=== PATIENT | female | born 1980 | race Caucasian/White ===

== ENCOUNTER 2018-03-05 20:52 | Emergency (ER) | payer OTHER ==
[2018-03-05 20:59] VITALS: BP 148/78; PULSE 120; TEMP 100.2; BMI 21.9
--- NOTE | 2018-03-05 21:01 | PDOC ---
Rapid Medical Evaluation Chief Complaint: Urinary Problem Time Seen by Provider: 03/05/18 20:55 Medical Evaluation: Allergies Allergy/AdvReac Type Severity Reaction Status Date / Time No Known Allergies Allergy Verified 09/25/15 23:32 03/05/18 20:57 I have performed a brief in-person evaluation of this patient. The patient presents with a chief complaint of: urinary frequency, back pain , Pertinent physical exam findings: pale, no CVAT, + suprapubic pain , soft I have ordered the following: ua, ucg, ucx The patient will proceed to the ED for further evaluation 03/05/18 20:59 Discharge Disposition - Diagnosis Dysuria - Referrals Referrals: Lucille Magallon [Primary Care Provider] - - Patient Instructions - Post Discharge Activity
[2018-03-05 22:16] LABS: URINE APPEARANCE CLEAR; URINE BILIRUBIN NEGATIVE (<2.0 mg/dL); URINE COLOR LTYELLOW; URINE GLUCOSE (UA) NEGATIVE (NEGATIVE); URINE KETONE NEGATIVE (NEGATIVE); URINE LEUK ESTERASE 1+ (NEGATIVE); URINE NITRITE NEGATIVE (NEGATIVE); URINE PROTEIN NEGATIVE (NEGATIVE); URINE UROBILINOGEN NEGATIVE mg/dL (0.2-1.0)
[2018-03-05 22:17] LABS: HCG,QUALITATIVE URINE Negative
[2018-03-05 22:27] LABS: EPI CELLS RARE /HPF (FEW); URINE BACTERIA RARE /hpf (NONE SEEN); URINE HYALINE CAST 1 /lpf; URINE MUCUS RARE
[2018-03-05] MEDS ORDERED: ACETAMINOPHEN 500 MG TABLET (FP) PO ONE (22:38)
[2018-03-05] MEDS ORDERED: ACETAMINOPHEN 500 MG TABLET (FP) ONE (22:39)
--- NOTE | 2018-03-05 22:39 | PDOC ---
History of Present Illness - General Chief Complaint: Cold Symptoms Stated Complaint: COLD SYMPTOMS Time Seen by Provider: 03/05/18 20:55 - History of Present Illness Initial Comments: 03/05/18 22:38 37-year-old female with urinary frequency and pressure times one day subjective fever at home. No comorbidities. Past History - Past Medical History Allergies/Adverse Reactions: Allergies Allergy/AdvReac Type Severity Reaction Status Date / Time No Known Allergies Allergy Verified 03/05/18 20:59 Home Medications: Ambulatory Orders Nitrofurantoin Monohyd/M-Cryst [Macrobid -] 100 mg PO BID #14 capsule 03/05/18 COPD: No - Surgical History Abdominal Surgery: Yes (LIPOSUCTION) - Suicide/Smoking/Psychosocial Hx Smoking History: Never smoked Have you smoked in the past 12 months: No Hx Alcohol Use: No Drug/Substance Use Hx: No Substance Use Type: None Review of Systems - Review of Systems Constitutional: Yes: Fever : Yes: Frequency *Physical Exam - Vital Signs Last Vital Signs Temp Pulse Resp BP Pulse Ox 100.2 F H 120 H 18 148/78 98 03/05/18 20:54 03/05/18 20:54 03/05/18 20:54 03/05/18 20:54 03/05/18 20:54 - Physical Exam Comments: 03/05/18 22:38 HEAD: NC/AT EYES: Conjuntiva clear NEUROLOGIC: No gross sensory or motor deficits SKIN: Normal color and temperature no lesions or rashes ED Treatment Course - ADDITIONAL ORDERS Additional order review: Laboratory Results 03/05/18 22:00 Urine Color Ltyellow Urine Appearance Clear Urine pH 6.0 Ur Specific [place] 1.012 Urine Protein Negative Urine Glucose (UA) Negative Urine Ketones Negative Urine Blood 3+ H Urine Nitrite Negative Urine Bilirubin Negative Urine Urobilinogen Negative Ur Leukocyte Esterase 1+ H Urine WBC (Auto) 45 Urine RBC (Auto) 4 Ur Epithelial Cells Rare Urine Bacteria Rare Hyaline Casts 1 Urine Mucus Rare Urine HCG, Qual Negative *DC/Admit/Observation/Transfer Diagnosis at time of Disposition: Dysuria, UTI (urinary tract infection) - Discharge Dispostion Disposition: HOME Condition at time of disposition: Stable Decision to Admit order: No - Prescriptions Prescriptions: Nitrofurantoin Monohyd/M-Cryst [Macrobid -] 100 mg PO BID #14 capsule - Referrals Referrals: Lucille Magallon [Primary Care Provider] - - Patient Instructions Printed Discharge Instructions: Urinary Tract Infection, DI for Urinary Tract Infection (UTI) Additional Instructions: Return to the emergency room should symptoms worsen or go unresolved. Please take the antibiotics as directed. Tylenol and Motrin as directed for fever. Follow-up through primary care physician in 2-3 days for further evaluation and treatment options. You must finish the entire course of the antibiotic. - Post Discharge Activity
== END 2018-03-05 22:41 | disposition home or self-care (01) ==
LOC: JERFT 20:52
DX: N39.0 Urinary tract infection, site not specified (principal)
CPT/HCPCS: 81003; 81015; 84703; 87086; 87186; 99281-25